=== PATIENT | male | born 1965 | race Caucasian/White ===

== ENCOUNTER → 2020-06-26 | Outpatient (CLI) | payer MEDICARE ==
[~2020-06-26] MED LIST: IOHEXOL 240 MG/ML 50ML VIAL. ONE; IOHEXOL 240 MG/ML 50ML VIAL. PO ONE; IOHEXOL 300 MG/ML 75 ML VIAL. IV ONE
--- NOTE | 2020-06-26 10:27 | RAD ---
EXAM: CT ABDOMEN/PELVIS WITH CONTRAST. HISTORY: Recurrent diarrhea. TECHNIQUE: Computed tomography of the abdomen and pelvis was performed after the intravenous administration of iodinated contrast. One or more of the following individualized dose reduction techniques were utilized for this examination: 1. Automated exposure control. 2. Adjustment of the mA and/or kV according to patient size. 3. Use of iterative reconstruction technique. COMPARISON: None. FINDINGS: Lung windows through the visualized portions of the bases reveal mild atelectasis. Bone windows reveal no suspicious lesions. A fat density nodule in the left adrenal gland measures 12 x 7 mm and is consistent with a benign myelolipoma. The right adrenal gland is unremarkable. The liver, gallbladder, spleen, pancreas and kidneys are unremarkable. There are no pathologically enlarged lymph nodes. The appendix is not inflamed. There is no small bowel obstruction. There are changes of mesh repair of the anterior abdominal wall. There is a small recurrent fat-containing hernia along the superior/midline aspect of mesh. The left seminal vesicle appears congenitally absent. IMPRESSION: 1. No acute intra-abdominal findings. 2. Small recurrent fat-containing hernia along the superior aspect of repair. 3. 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 Electronically signed by: Angelic Zuñiga MD (06/26/2020 10:24 AM) [id number]
== END | disposition home or self-care (01) ==
LOC: CT 07:18
PROVIDERS: ATTEND Internal Medicine Gastroenterology
DX: R19.7 Diarrhea, unspecified (principal); D35.00 Benign neoplasm of unspecified adrenal gland; J98.11 Atelectasis; Z90.79 Acquired absence of other genital organ(s)
CPT/HCPCS: 36415; 74177; 82565; 84520; Q9966; Q9967